=== PATIENT | male | born 1955 ===

== ENCOUNTER 2022-07-08 11:42 | Emergency (ER) | payer OTHER, MEDICARE ==
[2022-07-08] MEDS: Gabapentin 300 MG Cap PO ONE (12:39)
== END 2022-07-08 14:09 | disposition home or self-care (01) ==
LOC: LB.ED 11:42
DX: I73.9 Peripheral vascular disease, unspecified (principal); E78.00 Pure hypercholesterolemia, unspecified; J44.9 Chronic obstructive pulmonary disease, unspecified; I10 Essential (primary) hypertension; F17.210 Nicotine dependence, cigarettes, uncomplicated
CPT/HCPCS: 36415; 73620-RT; 80048; 80061; 83036; 84550; 85027; 99283; A9270-GY